=== PATIENT | male | born 1990 | race Caucasian/White ===

== ENCOUNTER 2024-03-26 05:09 | Emergency (ER) | payer MEDICAID ==
[~2024-03-26] VITALS: Ht 175.3 cm; Wt 77.1 kg
[2024-03-26 05:11] VITALS: BP 149/97; PULSE 80; RESP 16; TEMP 97.4; O2SAT 98
[2024-03-26 05:17] VITALS: O2SAT 98
== END 2024-03-26 06:05 | disposition home or self-care (01) ==
LOC: MED 05:09
DX: S90.822A Blister (nonthermal), left foot, initial encounter (principal); R03.0 Elevated blood-pressure reading, without diagnosis of hypertension; X58.XXXA Exposure to other specified factors, initial encounter; Y93.89 Activity, other specified; Y92.89 Other specified places as the place of occurrence of the external cause; Y99.8 Other external cause status
CPT/HCPCS: 99283